=== PATIENT | male | born 1945 | race Caucasian/White ===

== ENCOUNTER 2019-11-20 09:51 | Day surgery (SDC) | payer MEDICARE ==
[~2019-11-20 09:51] MED LIST: KETOROLAC TROMETHAMINE 0.45% 4 DROP/0.4 ML DROPERETTE OS PRN
[2019-11-20] MEDS: CYCLOPENTOLATE 0.2%/PHENYLEPHRINE 1% OPH SOLN 2 ML OS PRN ×3 (10:21→10:42)
[2019-11-20] MEDS: TROPICAMIDE 1% OPH SOLN 15 ML OS PRN ×3 (10:21→10:42)
[2019-11-20] MEDS: BESIFLOXACIN HCL 0.6% OPH SUSP 5 ML BOTTLE OS PRN ×4 (10:21→11:19)
[2019-11-20] MEDS: TETRACAINE HCL 0.5% OPH SOLN 4 ML OS PRN ×4 (10:21→10:53)
[2019-11-20] MEDS ORDERED: ONDANSETRON HCL INJ/PF 4 MG/2 ML SDV ONE (10:42)
[2019-11-20] MEDS ORDERED: MIDAZOLAM 2 MG/2 ML INJ ONE (10:43)
[2019-11-20] MEDS ORDERED: FENTANYL CITRATE INJ/PF 100 MCG/2 ML AMPUL ONE (10:43)
[2019-11-20] MEDS: CHONDR SU A NA/HYALUR INTRAOC KIT (SURGICARE) ONE ×2 (11:00)
[2019-11-20] MEDS: LIDOCAINE 1%/PHENYLEPHRINE 1.5% 1 ML VIAL ONE ×2 (11:00)
[2019-11-20] MEDS: EPINEPHRINE INJ/PF 1 MG/1 ML AMPULE ONE ×2 (11:00)
[2019-11-20] MEDS: DORZOLAMIDE HCL 2%/TIMOLOL MALEAT 0.5% OPH SOLN 10 ML OS PRN ×2 (11:19)
--- NOTE | 2019-11-20 14:11 | Operative Report ---
Operative Report-[facility] Operative Report: DATE OF SURGERY: 11/20/2019 PREOPERATIVE DIAGNOSIS: Cataract, left eye, Pupil Miosis POSTOPERATIVE DIAGNOSIS: Cataract, left eye, Pupil miosis OPERATION: Complex Cataract extraction with insertion of an IOL of the left eye and use of a maluygan ring due to pupil dilation of less than 4mm. Intraocular Lens Model: [22.0 sn60wf] Patient underwent surgery because her having difficulty reading road signs SURGEON: Yonatan Ram MD ANESTHESIA: Topical PROCEDURE: After obtaining appropriate consent, the patient's left eye was prepped and draped in a sterile fashion as well as the surgeon in the sterile manner and cataract surgery was started. First a paracentesis blade was used to make a side-port incision. Viscoelastic was used to inflate the anterior chamber. Next a 2.4 mm incision was made with a 2.4 mm blade, clear corneal temporarily. A continuous capsulorrhexis was made using a cystotome and Utrata forceps. Following this hydrodissection was carried out to make the lens fully loose and mobile and it was rotated freely. Following this, a divide and conquer technique was used to phacoemulsify the lens.. The remaining cortex was removed with an irrigation/aspiration. Provisc was instilled into the capsular bag to inflate the bag. The intraocular lens was placed. The remaining viscoelastic material was removed with irrigation/aspiration. Following this, the incision was found to be watertight. Prior to making the capsulorhexis a maluygan ring was inserted due to poor pupillary dilation. This was removed at the end of the case. Besivance and Cosopt was instilled into the eye and a protective shield was placed over the eye. The patient was returned to the postoperative recovery in a stable condition.
== END 2019-11-20 12:11 | disposition home or self-care (01) ==
LOC: SC 09:51
PROVIDERS: ATTEND Internal Medicine
DX: H25.13 Age-related nuclear cataract, bilateral (principal); H57.03 Miosis; I10 Essential (primary) hypertension; K21.9 Gastro-esophageal reflux disease without esophagitis; Z79.899 Other long term (current) drug therapy; H04.123 Dry eye syndrome of bilateral lacrimal glands; H43.813 Vitreous degeneration, bilateral
CPT/HCPCS: 66982; 00142; J2250; J3490 ×2; A9270; J0171; J3010; J2405; 142

== ENCOUNTER 2020-02-07 09:32 | Day surgery (SDC) | payer MEDICARE ==
[~2020-02-07 09:32] MED LIST changes: +KETOROLAC TROMETHAMINE 0.45% 4 DROP/0.4 ML DROPERETTE OD PRN; -KETOROLAC TROMETHAMINE 0.45% 4 DROP/0.4 ML DROPERETTE OS PRN
[2020-02-07] MEDS: TETRACAINE HCL 0.5% OPH SOLN 4 ML OD PRN ×4 (09:50→10:21)
[2020-02-07] MEDS: BESIFLOXACIN HCL 0.6% OPH SUSP 5 ML BOTTLE OD PRN ×4 (09:50→10:45)
[2020-02-07] MEDS: TROPICAMIDE 1% OPH SOLN 15 ML OD PRN ×3 (09:50→10:11)
[2020-02-07] MEDS: CYCLOPENTOLATE 0.2%/PHENYLEPHRINE 1% OPH SOLN 2 ML OD PRN ×3 (09:50→10:11)
[2020-02-07] MEDS ORDERED: FENTANYL CITRATE INJ/PF 100 MCG/2 ML AMPUL ONE (10:00)
[2020-02-07] MEDS ORDERED: MIDAZOLAM 2 MG/2 ML INJ ONE (10:00)
[2020-02-07] MEDS: CHONDR SU A NA/HYALUR INTRAOC KIT (SURGICARE) ONE ×2 (10:30)
[2020-02-07] MEDS: LIDOCAINE 1%/PHENYLEPHRINE 1.5% 1 ML VIAL ONE ×2 (10:30)
[2020-02-07] MEDS: EPINEPHRINE INJ/PF 1 MG/1 ML AMPULE ONE ×2 (10:30)
[2020-02-07] MEDS ORDERED: LIDOCAINE 1%/PHENYLEPHRINE 1.5% 1 ML VIAL ONE (10:36)
[2020-02-07] MEDS ORDERED: TOBRAMYCIN SULFATE/DEXAMETH OPH OINTMENT 3.5 GM ONE (10:37)
[2020-02-07] MEDS: DORZOLAMIDE HCL 2%/TIMOLOL MALEAT 0.5% OPH SOLN 10 ML OD PRN ×2 (10:45)
--- NOTE | 2020-02-08 13:47 | Operative Report ---
Operative Report-[facility] Operative Report: DATE OF SURGERY: 02/07/2020 PREOPERATIVE DIAGNOSIS: Cataract, right eye, Pupil Miosis POSTOPERATIVE DIAGNOSIS: Cataract, right eye, Pupil miosis OPERATION: Complex Cataract extraction with insertion of an IOL of the right eye and use of a maluygan ring due to pupil dilation of less than 4mm. Intraocular Lens Model: [22.0 sn60wf] Patient underwent surgery for difficulty seeing road signs SURGEON: Yonatan Ram MD ANESTHESIA: Topical PROCEDURE: After obtaining appropriate consent, the patient's right eye was prepped and draped in a sterile fashion as well as the surgeon in the sterile manner and cataract surgery was started. First a paracentesis blade was used to make a side-port incision. Viscoelastic was used to inflate the anterior chamber. Next a 2.4 mm incision was made with a 2.4 mm blade, clear corneal temporarily. A continuous capsulorrhexis was made using a cystotome and Utrata forceps. Following this hydrodissection was carried out to make the lens fully loose and mobile and it was rotated freely. Following this, a divide and conquer technique was used to phacoemulsify the lens. The remaining cortex was removed with an irrigation/aspiration. Provisc was instilled into the capsular bag to inflate the bag. The intraocular lens was placed. The remaining viscoelastic material was removed with irrigation/aspiration. Following this, the incision was found to be watertight. Prior to making the capsulorhexis a maluygan ring was inserted due to poor pupillary dilation. This was removed at the end of the case. Besivance and Cosopt was instilled into the eye and a protective shield was placed over the eye. The patient was returned to the postoperative recovery in a stable condition.
== END 2020-02-07 11:12 | disposition home or self-care (01) ==
LOC: SC 09:32
PROVIDERS: ATTEND Internal Medicine
DX: H25.11 Age-related nuclear cataract, right eye (principal); H57.03 Miosis; I10 Essential (primary) hypertension; Z79.899 Other long term (current) drug therapy
CPT/HCPCS: 66982; V2632; J2250; J3490 ×2; A9270 ×2; J0171; J3010; 142